=== PATIENT | female | born 1950 | race Caucasian/White ===

== ENCOUNTER 2019-04-11 06:50 | Emergency (ER) | payer MEDICARE, OTHER ==
[~2019-04-11] VITALS: Ht 165.1 cm; Wt 76.7 kg
[~2019-04-11 06:50] MED LIST: CITA10TA17 PO; PROP20TA7 PO; SIMV20TA6 PO
[2019-04-11 06:55] VITALS: BP_SYST 157
[2019-04-11] MEDS ORDERED: KETOROLAC TROMETHAMINE 60 MG/2 ML VIAL IM ONE (07:15)
[2019-04-11 08:13] VITALS: BP_SYST 148
== END 2019-04-11 08:13 | disposition home or self-care (01) ==
LOC: SED 06:50
DX: M54.5 Low back pain (principal); I10 Essential (primary) hypertension; E78.00 Pure hypercholesterolemia, unspecified; Z88.1 Allergy status to other antibiotic agents; Z88.8 Allergy status to other drugs, medicaments and biological substances
CPT/HCPCS: 72100; 96372; 99283; J1885

== ENCOUNTER 2021-12-14 09:38 | Emergency (ER) | payer MEDICARE ==
[~2021-12-14] VITALS: Ht 165.1 cm; Wt 79.4 kg
[~2021-12-14 09:38] MED LIST changes: +SIMV-43 PO; -SIMV20TA6 PO
[2021-12-14 09:40] VITALS: BP_SYST 142
[2021-12-14] MEDS ORDERED: NAPR-688 PO (10:43)
[2021-12-14] MEDS ORDERED: KETOROLAC TROMETHAMINE 30 MG VIAL IM ONE (10:45)
[2021-12-14 10:50] VITALS: BP_SYST 144
== END 2021-12-14 10:52 | disposition home or self-care (01) ==
LOC: SED 09:38
DX: M17.12 Unilateral primary osteoarthritis, left knee (principal); I10 Essential (primary) hypertension; Z79.899 Other long term (current) drug therapy
CPT/HCPCS: 73564; 96372; 99283; J1885

== ENCOUNTER 2022-02-27 20:32 | Emergency (ER) | payer MEDICARE ==
[~2022-02-27] VITALS: Ht 165.1 cm; Wt 74.8 kg
[~2022-02-27 20:32] MED LIST changes: +NAPR-688 PO
[2022-02-27 21:45] LABS: BASOPHILS # (AUTO) 0.3 K/uL (0.0-0.2); BASOPHILS % (AUTO) 2.3 % (0.0-2.0); EOSINOPHILS # (AUTO) 0.3 K/uL (0.0-0.4); EOSINOPHILS % (AUTO) 2.7 % (0.0-4.0); HEMATOCRIT 36.4 % (36-48); HEMOGLOBIN 11.8 g/dL (12.0-16.0); LYMPHOCYTES # (AUTO) 2.1 K/uL (1.0-5.5); LYMPHOCYTES % (AUTO) 16.8 % (20.5-51.5); MEAN CORPUSCULAR HEMOGLOBIN 28 pg (27-31); MEAN CORPUSCULAR HGB CONC 32 % (32-36); MEAN CORPUSCULAR VOLUME 86 fL (79.0-98.0); MONOCYTES # (AUTO) 0.9 K/uL (0.0-1.0); MONOCYTES % (AUTO) 7.1 % (1.7-9.3); NEUTROPHILS % (AUTO) 71.1 % (40.0-70.0); PLATELET COUNT (AUTO) 275 K/uL (130-430); RED BLOOD CELL COUNT(AUTO) 4.22 MIL/uL (4.2-6.2); RED CELL DISTRIBUTION WIDTH 14.4 % (9.0-15.0); WHITE BLOOD COUNT (AUTO) 12.6 K/uL (4.8-10.8)
[2022-02-27 22:27] LABS: ANION GAP 7 (5-15); CALCIUM 9.2 mg/dL (8.4-11.0); CHLORIDE 102 mmol/L (98-107); CREATININE 0.75 mg/dL (0.55-1.30); GLUCOSE 100 mg/dL (70-99); POTASSIUM 3.9 mmol/L (3.5-5.1); SODIUM SERUM 135 mmol/L (136-145); UREA NITROGEN, BLOOD 19 mg/dL (8-21)
[2022-02-27 22:42] LABS: ALANINE AMINOTRANSFERASE 21 U/L (12-78); ALBUMIN 3.8 g/dL (3.4-4.8); ASPARTATE AMINOTRANSFERASE 17 U/L (10-37); LIPASE 104 U/L (73-393); TOTAL BILIRUBIN 0.5 mg/dL (0.0-1.0)
[2022-02-27] MEDS ORDERED: metroNIDAZOLE 500 mg/NS 100 ML IV ONE (22:45)
[2022-02-27] MEDS ORDERED: MORPHINE 4 MG INJ. 4 MG/ML VIAL IVP ONE (22:45)
[2022-02-27] MEDS ORDERED: ONDANSETRON HCL 4 MG/2 ML VIAL IVP ONE (22:45)
[2022-02-27 22:53] LABS: BILIRUBIN,URINE NEGATIVE (NEGATIVE); BLOOD, URINE 2+ (NEGATIVE); COLOR,URINE YELLOW (YELLOW); GLUCOSE,URINE NEGATIVE (NEGATIVE); KETONES,URINE NEGATIVE (NEGATIVE); LEUKOCYTE ESTERASE ,URINE 1+ (NEGATIVE); NITRITE, URINE NEGATIVE (NEGATIVE); PROTEIN URINE NEGATIVE (NEGATIVE); UROBILINOGEN,URINE 0.2 (0.2-1.0)
[2022-02-27 23:25] LABS: CLARITY/URINE HAZY (CLEAR)
[2022-02-27 23:26] LABS: BACTERIA,URINE FEW /HPF (None Seen); WBC,URINE 80-100 /HPF (0-3)
[2022-02-27 23:27] LABS: MUCUS,URINE 1+ /LPF (None Seen)
[2022-02-28] MEDS ORDERED: MORPHINE 4 MG INJ. 4 MG/ML VIAL IVP ONE (00:30)
[2022-02-28 04:08] VITALS: BP_SYST 127
== END 2022-02-28 04:08 | disposition short-term general hospital (02) ==
LOC: SED 20:32
DX: K57.92 Diverticulitis of intestine, part unspecified, without perforation or abscess without bleeding (principal); I10 Essential (primary) hypertension; E78.00 Pure hypercholesterolemia, unspecified; Z88.1 Allergy status to other antibiotic agents; Z79.899 Other long term (current) drug therapy; Z20.822 Contact with and (suspected) exposure to COVID-19
CPT/HCPCS: 36415; 74176; 76376; 80053; 81000; 83690; 85025; 87086; 87426; 93005; 96365; 96375; 96376; 99285; J1956; J2270 ×2; J2405; J3490

== ENCOUNTER 2023-04-13 00:25 | Emergency (ER) | payer MEDICARE ==
[~2023-04-13] VITALS: Ht 165.1 cm; Wt 74.8 kg
[2023-04-13 00:37] VITALS: BP_SYST 161
--- NOTE | 2023-04-13 00:40 | NUR ---
Patient to ER bed 05 to gown for evaluation. Side rails up. Report given to CYN TOWNSEND.
--- NOTE | 2023-04-13 00:42 | NUR ---
PATIENT BROUGHT FROM HOME ACCOMPANIED BY COMPLAINING OF LEFT SIDED NECK PAIN WORSENING OVER 3 DAYS. HX OF NECK FUSION. DENIES ANY TRAUMA.
--- NOTE | 2023-04-13 00:49 | NUR ---
ER Dr. CALVILLO at bedside examining patient.
[2023-04-13] MEDS ORDERED: LIDOCAINE PATCH 5% 1 EA TP ONE (01:00)
[2023-04-13] MEDS ORDERED: methocarbamoL 500 MG TABLET PO ONE (01:00)
[2023-04-13] MEDS ORDERED: KETOROLAC TROMETHAMINE 30 MG VIAL IM ONE (01:00)
[2023-04-13] MEDS ORDERED: ACETAMINOPHEN 500 MG TABLET PO ONE (01:00)
--- NOTE | 2023-04-13 01:28 | NUR ---
MEDICATED PER MD ORDERS. PATIENT TOLERATED WELL
[2023-04-13] MEDS ORDERED: ACET325T53 PO (02:11)
[2023-04-13] MEDS ORDERED: IBUP-1969 PO (02:11)
[2023-04-13] MEDS ORDERED: LIDO1ADH43 TP (02:15)
[2023-04-13] MEDS ORDERED: METH-634 PO (02:15)
[2023-04-13 02:21] VITALS: BP_SYST 128
--- NOTE | 2023-04-13 02:21 | NUR ---
Patient given written and verbal discharge instructions and verbalizes understanding. ER MD discussed with patient the results and treatment provided. Patient in stable condition. ID arm band removed. Rx of ibuprofen, tylenol, lidocaine patch, methocarbomal given. Patient educated on pain management and to follow up with PMD. Pain Scale 2/10 Opportunity for questions provided and answered. Medication side effect fact sheet provided.
== END 2023-04-13 02:21 | disposition home or self-care (01) ==
LOC: SED 00:25
DX: M43.6 Torticollis (principal); M54.2 Cervicalgia; I10 Essential (primary) hypertension; Z88.1 Allergy status to other antibiotic agents; Z79.899 Other long term (current) drug therapy
CPT/HCPCS: 99284; 96372; J1885

== ENCOUNTER 2023-05-17 07:32 | Emergency (ER) | payer MEDICARE ==
[~2023-05-17] VITALS: Ht 165.1 cm; Wt 77.1 kg
[~2023-05-17 07:32] MED LIST changes: +ACET325T53 PO; +IBUP-1969 PO; +LIDO1ADH43 TP; +METH-634 PO
[2023-05-17 07:48] VITALS: BP_SYST 122; PULSE 62; RESP 16; TEMP 97.6; O2SAT 98
--- NOTE | 2023-05-17 08:14 | NUR ---
RECEIVED PT FROM CYN HERNANDEZ. BIB PRIVATE CAR DUE TO INTERMITTENT ABDOMINAL PAIN FOR 4DAYS. PT REPORTS DIARRHEA AND CONSTIPATION FOR THE PAST FEW DAYS. NO NAUSEA AND VOMITING. REPORTS PAIN AT 4/10.
--- NOTE | 2023-05-17 08:14 | NUR ---
Patient to ER bed 4 for evaluation. Side rails up. Report given to Yasmin.
--- NOTE | 2023-05-17 08:15 | NUR ---
SEEN AND EXAMINED BY DR MARR AT BEDSIDE. PT STABLE.
--- NOTE | 2023-05-17 08:30 | NUR ---
PT BROUGHT TO CT SCAN ACCOMPANIED BY [employer], AMBULATORY. STABLE GAIT NOTED.
[2023-05-17 08:34] LABS: BASOPHILS # (AUTO) 0.1 K/uL (0.0-0.2); BASOPHILS % (AUTO) 0.9 % (0.0-2.0); EOSINOPHILS # (AUTO) 0.1 K/uL (0.0-0.4); EOSINOPHILS % (AUTO) 1.1 % (0.0-4.0); HEMATOCRIT 41.3 % (36-48); HEMOGLOBIN 13.4 g/dL (12.0-16.0); LYMPHOCYTES # (AUTO) 2.7 K/uL (1.0-5.5); LYMPHOCYTES % (AUTO) 22.2 % (20.5-51.5); MEAN CORPUSCULAR HEMOGLOBIN 28 pg (27-31); MEAN CORPUSCULAR HGB CONC 32 % (32-36); MEAN CORPUSCULAR VOLUME 87 fL (79.0-98.0); MONOCYTES % (AUTO) 8.2 % (1.7-9.3); NEUTROPHILS # (AUTO) 8.3 K/uL (1.8-7.7); NEUTROPHILS % (AUTO) 67.6 % (40.0-70.0); PLATELET COUNT (AUTO) 261 K/uL (130-430); RED BLOOD CELL COUNT(AUTO) 4.74 MIL/uL (4.2-6.2); RED CELL DISTRIBUTION WIDTH 13.9 % (9.0-15.0); WHITE BLOOD COUNT (AUTO) 12.2 K/uL (4.8-10.8)
[2023-05-17 08:51] LABS: ANION GAP 6 (5-15); CALCIUM 8.7 mg/dL (8.4-11.0); CHLORIDE 101 mmol/L (98-107); CREATININE 0.82 mg/dL (0.55-1.30); GLUCOSE 105 mg/dL (74-106); UREA NITROGEN, BLOOD 20 mg/dL (8-21)
[2023-05-17 08:56] LABS: ALANINE AMINOTRANSFERASE 28 U/L (12-78); ALBUMIN 3.7 g/dL (3.4-4.8); AMYLASE 51 U/L (0-100); ASPARTATE AMINOTRANSFERASE 20 U/L (10-37); LIPASE 82 U/L (73-393); TOTAL BILIRUBIN 0.6 mg/dL (0.0-1.0)
[2023-05-17 08:57] LABS: ACETONE, SERUM NEGATIVE (NEGATIVE)
[2023-05-17 09:10] LABS: BILIRUBIN,URINE NEGATIVE (NEGATIVE); BLOOD, URINE 1+ (NEGATIVE); CLARITY/URINE CLEAR (CLEAR); COLOR,URINE YELLOW (YELLOW); GLUCOSE,URINE NEGATIVE (NEGATIVE); KETONES,URINE NEGATIVE (NEGATIVE); LEUKOCYTE ESTERASE ,URINE 2+ (NEGATIVE); NITRITE, URINE NEGATIVE (NEGATIVE); PH,URINE 5.5 (5.0-8.0); PROTEIN URINE NEGATIVE (NEGATIVE); UROBILINOGEN,URINE 0.2 (0.2-1.0)
[2023-05-17 09:31] LABS: BACTERIA,URINE RARE /HPF (None Seen); WBC,URINE 20-50 /HPF (0-3)
[2023-05-17] MEDS ORDERED: AMOX-423 PO (10:05)
[2023-05-17] MEDS ORDERED: IBUP-1969 PO (10:05)
[2023-05-17] MEDS ORDERED: AMOXICILLIN/CLAVULANATE POTASSIUM 500 MG TABLET PO ONE (10:15)
[2023-05-17] MEDS ORDERED: IBUPROFEN 600 MG TABLET PO ONE (10:15)
--- NOTE | 2023-05-17 10:26 | NUR ---
Patient given written and verbal discharge instructions and verbalizes understanding. ER MD discussed with patient the results and treatment provided. Patient in stable condition. ID arm band removed. Rx of given. Patient educated on pain management and to follow up with PMD. Pain Scale . Opportunity for questions provided and answered. Medication side effect fact sheet provided.
== END 2023-05-17 10:26 | disposition home or self-care (01) ==
LOC: SED 07:32
DX: K57.92 Diverticulitis of intestine, part unspecified, without perforation or abscess without bleeding (principal); R10.32 Left lower quadrant pain; I10 Essential (primary) hypertension; Z88.1 Allergy status to other antibiotic agents; Z79.899 Other long term (current) drug therapy
CPT/HCPCS: 36415; 76376; 80053; 81000; 82009; 82150; 83605; 83690; 85025; 87086; 99284